=== PATIENT | female | born 1955 | race Caucasian/White ===

== ENCOUNTER 2018-01-22 16:39 | Emergency (ER) | payer OTHER ==
[~2018-01-22] VITALS: Ht 165.1 cm; Wt 130.5 kg
[~2018-01-22 16:39] MED LIST: ALLOPURINOL300 MG PO; AURALGAN14.8 ML RIGHT EAR; CIPRO HC OTIC S10 ML RIGHT EAR; COLCRYS0.6 MG PO; COUMADIN2 MG PO; GLUCOPHAGE500 MG PO; K-DUR10 MEQ PO; LASIX40 MG PO; MATZIM LA180 MG PO; PRAVASTATIN SOD80 MG PO; PRILOSEC OTC20 MG PO; PROAIR HFA8.5 GM IH
[2018-01-22 20:19] VITALS: BP 141/85
== END 2018-01-22 20:19 | disposition home or self-care (01) ==
LOC: EME 16:39
DX: K22.4 Dyskinesia of esophagus (principal); I11.0 Hypertensive heart disease with heart failure; I50.9 Heart failure, unspecified; J44.9 Chronic obstructive pulmonary disease, unspecified; K21.9 Gastro-esophageal reflux disease without esophagitis; E11.9 Type 2 diabetes mellitus without complications; Z79.84 Long term (current) use of oral hypoglycemic drugs; Z79.01 Long term (current) use of anticoagulants